=== PATIENT | female | born 1990 | race Caucasian/White ===

== ENCOUNTER 2016-12-21 14:33 | Emergency (ER) | payer SELFPAY | END 2016-12-21 16:26 | disposition home or self-care (01) | LOC: ER1 14:33 | DX: S93.401A Sprain of unspecified ligament of right ankle, initial encounter (principal); X50.1XXA Overexertion from prolonged static or awkward postures, initial encounter; W19.XXXA Unspecified fall, initial encounter | CPT/HCPCS: 73610; 99283 ==